=== PATIENT | male | born 1960 | race Caucasian/White ===

== ENCOUNTER → 2018-12-19 | Outpatient (CLI) | payer SELFPAY ==
[~2018-12-19] MED LIST: ADDERALL5 MG PO; SOMA PO; ULTRAM50 MG PO
--- NOTE | ~2018-12-19 | EKG ---
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
== END | disposition home or self-care (01) ==
LOC: CARD 11:22
DX: Z51.81 Encounter for therapeutic drug level monitoring (principal); F15.20 Other stimulant dependence, uncomplicated; Z79.899 Other long term (current) drug therapy

== ENCOUNTER → 2020-06-30 | Outpatient (CLI) | payer SELFPAY ==
[2020-06-30 13:47] LABS: URINE AMPHETAMINES > 1000 (1000ng/ml); URINE BARBITURATES < 200 (200ng/ml); URINE BENZODIAZEPINES < 200 (200ng/ml); URINE CANNABINOIDS (THC) < 50 (50ng/ml); URINE COCAINE < 300 (300ng/ml); URINE METHADONE < 300 (300ng/ml); URINE OPIATES < 300 (300ng/ml)
[2020-06-30 13:48] LABS: URINE PHENCYCLIDINE < 25 (25ng/ml)
== END | disposition home or self-care (01) ==
LOC: LAB 13:20
PROVIDERS: ATTEND Nurse Practitioner Family
DX: Z51.81 Encounter for therapeutic drug level monitoring (principal); Z79.899 Other long term (current) drug therapy

== ENCOUNTER → 2020-09-10 | Outpatient (CLI) | payer SELFPAY | END | disposition home or self-care (01) | LOC: CARD 12:49 | PROVIDERS: ATTEND Internal Medicine Cardiovascular Disease | DX: F90.9 Attention-deficit hyperactivity disorder, unspecified type (principal); R94.31 Abnormal electrocardiogram [ECG] [EKG] ==